=== PATIENT | male | born 1990 | race Caucasian/White ===

== ENCOUNTER 2022-09-30 01:23 | Emergency (ER) | payer MEDICARE, OTHER ==
[~2022-09-30] VITALS: Ht 172.7 cm; Wt 58.0 kg
[2022-09-30 01:35] VITALS: BP 145/93
[2022-09-30] MEDS ORDERED: AMOXICILLIN500 MG PO (01:48)
[2022-09-30] MEDS ORDERED: NAPROXEN375 MG PO (01:48)
[2022-09-30] MEDS ORDERED: TRAMADOL HCL50 MG PO (01:48)
== END 2022-09-30 02:02 | disposition home or self-care (01) ==
LOC: ED 01:23
DX: K04.7 Periapical abscess without sinus (principal); K02.9 Dental caries, unspecified

== ENCOUNTER 2022-10-17 00:49 | Emergency (ER) | payer MEDICARE, OTHER ==
[~2022-10-17 00:49] MED LIST: AMOXICILLIN500 MG PO; NAPROXEN375 MG PO; TRAMADOL HCL50 MG PO
== END 2022-10-17 03:30 | disposition left against medical advice (07) ==
LOC: ED 00:49 → LWOBS 03:30
DX: Z53.21 Procedure and treatment not carried out due to patient leaving prior to being seen by health care provider (principal)